=== PATIENT | female | born 1975 | race American Indian/Alaskan Native ===

== ENCOUNTER 2017-11-21 07:28 | Emergency (ER) | payer OTHER ==
[2017-11-21] MEDS ORDERED: ASPIRIN PO ONE (07:36)
[2017-11-21 08:04] LABS: Basophils % (Auto) 0.3 % (0.0-1.8); Eosinophils % (Auto) 0.5 % (0.0-4.3); Hematocrit 48.3 % (30.3-42.9); Hemoglobin 16.4 gm/dl (10.1-14.3); Lymphocytes % (Auto) 41.5 % (13.4-35.0); Mean Corpuscular HGB Conc 34 % (30-34); Mean Corpuscular Hemoglobin 29 pg (28-32); Mean Corpuscular Volume 86 fl (79-97); Monocytes # (Auto) 0.6 K/mm3 (0.0-0.8); Monocytes % (Auto) 11.7 % (0.0-7.3); Platelet Count 296 K/mm3 (140-440); Red Cell Distribution Width 14.5 % (13.2-15.2)
[2017-11-21] MEDS ORDERED: ASPIRIN ONE (09:41)
--- NOTE | 2017-11-21 09:58 | Emergency Department Report ---
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 Patient suspects that her potassium is low because it has been low in the past. She is treated in June for hypokalemia with 3 doses of potassium chloride 20 mEq. She currently takes metoprolol and all the pain with last doses prior to arrival. She also complain of some mild chest discomfort. No complaints of shortness of breath, nausea, vomiting, diaphoresis. Patient states her blood pressure might be elevated due to white coat syndrome. 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 Patient states she's been eating a lot of bananas and on shoes to help elevated potassium level. - Related Data Previous Rx's Medication Instructions Recorded Last Taken Type Blood Sugar Diagnostic, Drum 1 each QAC #60 strip 11/21/17 Unknown Rx [Accu-Chek Compact] Blood-Glucose Meter [Accu-Chek 1 each MC QAC #1 each 11/21/17 Unknown Rx Guide Monitor System] metFORMIN [Glucophage] 500 mg PO BID #60 tablet 11/21/17 Unknown Rx Allergies Allergy/AdvReac Type Severity Reaction Status Date / Time Penicillins Allergy Hives Verified 11/21/17 07:31 ED Review of Systems ROS: Stated complaint: WEAKNESS Other details as noted in HPI Comment: All other systems reviewed and negative ED Past Medical Hx - Past Medical History Previous Medical History?: Yes Hx Hypertension: Yes Additional medical history: hypokalemia. MVP - Surgical History Past Surgical History?: Yes Additional Surgical History: ovary removal - Social History Smoking Status: Never Smoker Substance Use Type: None - Medications Home Medications: Home Medications Medication Instructions Recorded Confirmed Last Taken Type Blood Sugar Diagnostic, Drum 1 each QAC #60 strip 11/21/17 Unknown Rx [Accu-Chek Compact] Blood-Glucose Meter [Accu-Chek 1 each QAC #1 each 11/21/17 Unknown Rx Guide Monitor System] metFORMIN [Glucophage] 500 mg PO BID #60 tablet 11/21/17 Unknown Rx ED Physical Exam - General Limitations: No Limitations - Other Other exam information: General: No limitations, patient is alert in no acute distress Head exam: Atraumatic, normocephalic Eyes exam: Normal appearance ENT: Moist mucous membrane, normal oropharynx Neck exam: Normal inspection, full range of motion, no meningismus nontender Respiratory exam: Clear to auscultation bilateral, no wheezes, rales, crackles Cardiovascular: Normal rate and rhythm, normal heart sounds Abdomen: Soft, nondistended, and nontender, with normal bowel sounds, no rebound, or guarding Extremity: Full range of motion normal inspection no deformity Back: Normal Inspection, full range of motion, no tenderness Neurologic: Alert, oriented x3, cranial nerves intact, no motor or sensory deficit Psychiatric: normal affect, normal mood Skin: Warm, dry, intact ED Course Vital Signs 11/21/17 11/21/17 11/21/17 07:31 08:48 09:00 Temperature 97.7 F Pulse Rate 88 82 78 Respiratory 16 17 13 Rate Blood Pressure 176/111 169/104 O2 Sat by Pulse 100 97 98 Oximetry 11/21/17 11/21/17 11/21/17 09:15 09:30 09:45 Temperature Pulse Rate 66 84 63 Respiratory 15 20 20 Rate Blood Pressure 165/104 152/100 152/100 O2 Sat by Pulse 98 96 Oximetry 11/21/17 11/21/17 11/21/17 10:00 10:15 10:30 Temperature Pulse Rate 84 76 85 Respiratory 21 18 20 Rate Blood Pressure 142/100 142/100 152/101 O2 Sat by Pulse 96 96 Oximetry 11/21/17 11/21/17 11/21/17 10:45 11:00 11:15 Temperature Pulse Rate 93 H 87 89 Respiratory 18 16 15 Rate Blood Pressure 152/101 155/104 155/104 O2 Sat by Pulse 97 98 96 Oximetry 11/21/17 11/21/17 11/21/17 13:47 14:01 14:15 Temperature Pulse Rate 128 H 119 H 114 H Respiratory 18 17 19 Rate Blood Pressure 155/104 175/101 155/104 O2 Sat by Pulse 96 97 Oximetry 11/21/17 11/21/17 11/21/17 14:30 14:46 15:00 Temperature Pulse Rate 111 H 104 H 104 H Respiratory 17 21 14 Rate Blood Pressure 175/101 157/90 O2 Sat by Pulse 97 96 96 Oximetry - Reevaluation(s) Reevaluation #1: 11/21/17 15:25 elevated after albuterol neb. Pt received kayexylate and no stool yet ED Medical Decision Making - Lab Data Result diagrams: 11/21/17 07:42 11/21/17 14:32 Lab Results 11/21/17 11/21/17 11/21/17 Range/Units 07:42 07:42 07:42 WBC 4.9 (4.5-11.0) K/mm3 RBC 5.60 H (3.65-5.03) M/mm3 Hgb 16.4 H (10.1-14.3) gm/dl Hct 48.3 H (30.3-42.9) % MCV 86 (79-97) fl MCH 29 (28-32) pg MCHC 34 (30-34) % RDW 14.5 (13.2-15.2) % Plt Count 296 (140-440) K/mm3 Lymph % (Auto) 41.5 H (13.4-35.0) % [place] % (Auto) 11.7 H (0.0-7.3) % Eos % (Auto) 0.5 (0.0-4.3) % Baso % (Auto) 0.3 (0.0-1.8) % Lymph # 2.0 (1.2-5.4) K/mm3 [place] # 0.6 (0.0-0.8) K/mm3 Eos # 0.0 (0.0-0.4) K/mm3 Baso # 0.0 (0.0-0.1) K/mm3 Seg Neutrophils % 46.0 (40.0-70.0) % Seg Neutrophils # 2.2 (1.8-7.7) K/mm3 Sodium 138 (137-145) mmol/L Potassium 5.5 H (3.6-5.0) mmol/L Chloride 95.9 L (98-107) mmol/L Carbon Dioxide 23 (22-30) mmol/L Anion Gap 25 mmol/L BUN < 1 L (7-17) mg/dL Creatinine 0.5 L (0.7-1.2) mg/dL Estimated GFR > 60 ml/min BUN/Creatinine Ratio 2 % Glucose 402 H (65-100) mg/dL POC Glucose (70-105) Hemoglobin A1c (4-6) % Calcium 9.6 (8.4-10.2) mg/dL Magnesium 2.10 (1.7-2.3) mg/dL Troponin T 0.010 (0.00-0.029) ng/mL Urine Color (Yellow) Urine Turbidity (Clear) Urine pH (5.0-7.0) Ur Specific [place] (1.003-1.030) Urine Protein (Negative) mg/dL Urine Glucose (UA) (Negative) mg/dL Urine Ketones (Negative) mg/dL Urine Blood (Negative) Urine Nitrite (Negative) Urine Bilirubin (Negative) Urine Urobilinogen (<2.0) mg/dL Ur Leukocyte Esterase (Negative) Urine WBC (Auto) (0.0-6.0) /HPF Urine RBC (Auto) (0.0-6.0) /HPF U Epithel Cells (Auto) (0-13.0) /HPF 11/21/17 11/21/17 11/21/17 Range/Units 07:42 08:50 10:11 WBC (4.5-11.0) K/mm3 RBC (3.65-5.03) M/mm3 Hgb (10.1-14.3) gm/dl Hct (30.3-42.9) % MCV (79-97) fl MCH (28-32) pg MCHC (30-34) % RDW (13.2-15.2) % Plt Count (140-440) K/mm3 Lymph % (Auto) (13.4-35.0) % [place] % (Auto) (0.0-7.3) % Eos % (Auto) (0.0-4.3) % Baso % (Auto) (0.0-1.8) % Lymph # (1.2-5.4) K/mm3 [place] # (0.0-0.8) K/mm3 Eos # (0.0-0.4) K/mm3 Baso # (0.0-0.1) K/mm3 Seg Neutrophils % (40.0-70.0) % Seg Neutrophils # (1.8-7.7) K/mm3 Sodium (137-145) mmol/L Potassium (3.6-5.0) mmol/L Chloride (98-107) mmol/L Carbon Dioxide (22-30) mmol/L Anion Gap mmol/L BUN (7-17) mg/dL Creatinine (0.7-1.2) mg/dL Estimated GFR ml/min BUN/Creatinine Ratio % Glucose (65-100) mg/dL POC Glucose (70-105) Hemoglobin A1c 10.7 H (4-6) % Calcium (8.4-10.2) mg/dL Magnesium (1.7-2.3) mg/dL Troponin T < 0.010 (0.00-0.029) ng/mL Urine Color Yellow (Yellow) Urine Turbidity Clear (Clear) Urine pH 7.0 (5.0-7.0) Ur Specific [place] 1.043 H (1.003-1.030) Urine Protein 30 mg/dl (Negative) mg/dL Urine Glucose (UA) >=500 (Negative) mg/dL Urine Ketones 20 (Negative) mg/dL Urine Blood Neg (Negative) Urine Nitrite Neg (Negative) Urine Bilirubin Neg (Negative) Urine Urobilinogen < 2.0 (<2.0) mg/dL Ur Leukocyte Esterase Neg (Negative) Urine WBC (Auto) 2.0 (0.0-6.0) /HPF Urine RBC (Auto) 1.0 (0.0-6.0) /HPF U Epithel Cells (Auto) 2.0 (0-13.0) /HPF 11/21/17 11/21/17 Range/Units 12:29 14:32 WBC (4.5-11.0) K/mm3 RBC (3.65-5.03) M/mm3 Hgb (10.1-14.3) gm/dl Hct (30.3-42.9) % MCV (79-97) fl MCH (28-32) pg MCHC (30-34) % RDW (13.2-15.2) % Plt Count (140-440) K/mm3 Lymph % (Auto) (13.4-35.0) % [place] % (Auto) (0.0-7.3) % Eos % (Auto) (0.0-4.3) % Baso % (Auto) (0.0-1.8) % Lymph # (1.2-5.4) K/mm3 [place] # (0.0-0.8) K/mm3 Eos # (0.0-0.4) K/mm3 Baso # (0.0-0.1) K/mm3 Seg Neutrophils % (40.0-70.0) % Seg Neutrophils # (1.8-7.7) K/mm3 Sodium 141 (137-145) mmol/L Potassium 3.3 L D (3.6-5.0) mmol/L Chloride 100.7 (98-107) mmol/L Carbon Dioxide 20 L (22-30) mmol/L Anion Gap 24 mmol/L BUN 4 L (7-17) mg/dL Creatinine 0.5 L (0.7-1.2) mg/dL Estimated GFR > 60 ml/min BUN/Creatinine Ratio 8 % Glucose 277 H (65-100) mg/dL POC Glucose 294 H (70-105) Hemoglobin A1c (4-6) % Calcium 8.6 (8.4-10.2) mg/dL Magnesium (1.7-2.3) mg/dL Troponin T (0.00-0.029) ng/mL Urine Color (Yellow) Urine Turbidity (Clear) Urine pH (5.0-7.0) Ur Specific [place] (1.003-1.030) Urine Protein (Negative) mg/dL Urine Glucose (UA) (Negative) mg/dL Urine Ketones (Negative) mg/dL Urine Blood (Negative) Urine Nitrite (Negative) Urine Bilirubin (Negative) Urine Urobilinogen (<2.0) mg/dL Ur Leukocyte Esterase (Negative) Urine WBC (Auto) (0.0-6.0) /HPF Urine RBC (Auto) (0.0-6.0) /HPF U Epithel Cells (Auto) (0-13.0) /HPF - EKG Data -: EKG Interpreted by Ca EKG shows normal: sinus rhythm, axis (qrs 3 ), QRS complexes (76), ST-T waves ( no stemi/t inv) Rate: normal (90) - Medical Decision Making Patient has hyperglycemia with elevated hemoglobin A1c there for newly diagnosed diabetic. Diabetes likely the cause of her symptoms. Patient received albuterol, Kayexalate, and IV fluids. Repeat potassium is 3.3 down from 5.5. One dose of by mouth potassium given prior to discharge. Patient was initially hesitant to receive insulin. She will be discharged on metformin 500 mg bid - Differential Diagnosis dehydration, electrolyte abnormality, hypertensive emerg Critical Care Time: No Critical care attestation.: If time is entered above; I have spent that time in minutes in the direct care of this critically ill patient, excluding procedure time. ED Disposition Clinical Impression: Diabetes mellitus, new onset, Hyperkalemia Disposition: TO HOME OR SELFCARE Is pt being admited?: No Does the pt Need Aspirin: No Condition: Stable Instructions: Diabetes Mellitus Type 2 in Adults (ED), Hyperkalemia (ED) Additional Instructions: Take the as prescribed. Continue to monitor your sugar at home. It is very important that you follow up with your doctor for further diabetes management and repeat potassium measurement Prescriptions: Blood Sugar Diagnostic, Drum [Accu-Chek Compact] 1 each QAC #60 strip Blood-Glucose Meter [Accu-Chek Guide Monitor System] 1 each QAC #1 each metFORMIN [Glucophage] 500 mg PO BID #60 tablet Referrals: SHERLYN ALMANZA [Other] - 3-5 Days Time of Disposition: 15:26
[2017-11-21 10:09] LABS: Bilirubin,Urine NEG (Negative); Blood,Urine NEG (Negative); Color,Urine Yellow (Yellow); Urobilinogen,Urine < 2.0 mg/dL (<2.0)
[2017-11-21 10:12] LABS: Calcium 9.6 mg/dL (8.4-10.2); Hemolysis Index 241
[2017-11-21 10:29] LABS: BUN/Creatinine Ratio 2; Blood Urea Nitrogen < 1 mg/dL (7-17)
[2017-11-21] MEDS ORDERED: NACL 0.9% 1000 ML 1,000 ML IV ONE ×2 (10:37→10:43)
[2017-11-21] MEDS ORDERED: KIONEX PO ONE (10:43)
[2017-11-21] MEDS ORDERED: HumuLIN R ONE (12:56)
[2017-11-21] MEDS ORDERED: PROVENTIL IH ONE (13:08)
[2017-11-21] MEDS: HumuLIN R IV ONE (13:18)
[2017-11-21 15:02] LABS: BUN/Creatinine Ratio 8; Blood Urea Nitrogen 4 mg/dL (7-17); Calcium 8.6 mg/dL (8.4-10.2); Hemolysis Index 33
[2017-11-21 16:21] VITALS: BP 140/87
[2017-11-21] MEDS ORDERED: POTASSIUM CHLORIDE FEEDTUBE ONE (16:24)
== END 2017-11-21 16:22 | disposition home or self-care (01) ==
LOC: ED 07:28
DX: E11.9 Type 2 diabetes mellitus without complications (principal); E87.5 Hyperkalemia; I10 Essential (primary) hypertension; Z88.0 Allergy status to penicillin; Z90.721 Acquired absence of ovaries, unilateral
CPT/HCPCS: 36415; 80048; 81001; 82962; 83036; 83735; 84484; 85025; 93005; 93010; 96361; 96374; 99284; J7030; J1815